=== PATIENT | female | born 1955 | race Caucasian/White ===

== ENCOUNTER → 2022-04-28 | Outpatient (CLI) | payer MEDICARE ==
--- NOTE | 2022-04-28 14:26 | BD ---
EXAMINATION TYPE: Axial Bone Density DATE OF EXAM: 04/28/2022 COMPARISON: BASELINE CLINICAL HISTORY: 66 years old Female. ICD-10 CODE: Z13.820 SCREEN FOR OSTEOPOROSIS Height: 59 Weight: 180 FRAX RISK QUESTIONS: Family History (Parent hip fracture): YES MOTHER History of Fracture in Adulthood: NO Secondary Osteoporosis: NO RISK FACTORS HISTORY OF: Family History of Osteoporosis: NO Active: YES Diet low in dairy products/other sources of calcium: YES Postmenopausal woman: YES Lost more than 2 inches in height since high school: NO MEDICATIONS: Additional Medications: YES HBP , IBS MEDS , VIT D , CALCIUM EXAM MEASUREMENTS: Bone mineral densitometry was performed using the [employer] System. Bone mineral density as measured about the Lumbar spine is: ----- L1-L4(G/cm2): 1.242 T Score Values are as follows: ----- L1: 0.3 ----- L2: 0.7 ----- L3: 0.6 ----- L4: 0.2 ----- L1-L4: 0.5 Bone mineral density BASELINE Bone mineral density about the R hip (g/cm2): 0.750 Bone mineral density about the L hip (g/cm2): 0.718 T Score values are as follows: -----R Neck: -2.3 -----L Neck: -2.3 -----R Total: -2.0 -----L Total: -2.3 Bone mineral density BASELINE FRAX%s: The graph provided illustrates a 11.9% chance for a major osteoporotic fx and a 2.3% chance f or the hips probability for fx in 10 years time. IMPRESSION: Osteopenia (T Score between -2.5 and -1). Most pronounced at the femoral necks. There is slightly increased risk of fracture and the patient may be considered for treatment. Re-Screen 2-5 years. NOTE: T-SCORE=SD OF THE YOUNG ADULT MEAN.
--- NOTE | 2022-05-20 08:43 | MM ---
Reason for Exam: Screening (asymptomatic). Last mammogram was performed 1 year(s) and 3 month(s) ago. Patient History: Menarche at age 9. First Full-Term at age 17. Postmenopausal. Maternal aunt had breast cancer, age 60. Cousin had breast cancer, age 50. Cousin had breast cancer, age 45. Risk Values: Marta 5 year model risk: 1.3%. NCI Lifetime model risk: 4.6%. Prior Study Comparison: 01/31/2021 Bilateral MG 3D screening mammo w/cad, [place]. Tissue Density: The breast tissue is heterogeneously dense. This may lower the sensitivity of mammography. Findings: Analyzed By CAD. There is no suspicious group of microcalcifications or new suspicious mass in either breast. Overall Assessment: Benign, BI-RAD 2 Management: Screening Mammogram of both breasts in 1 year. A clinical breast exam by your physician is recommended on an annual basis and results should be correlated with mammographic findings. Electronically signed and approved by: Abisai Stevens M.D. Radiologis
== END | disposition home or self-care (01) ==
LOC: RADMAMWWP 12:44
PROVIDERS: ATTEND Internal Medicine
DX: Z12.31 Encounter for screening mammogram for malignant neoplasm of breast (principal); Z13.820 Encounter for screening for osteoporosis; M85.89 Other specified disorders of bone density and structure, multiple sites; Z78.0 Asymptomatic menopausal state; Z80.3 Family history of malignant neoplasm of breast
CPT/HCPCS: 77063; 77067; 77080

== ENCOUNTER 2022-06-04 08:36 | Day surgery (SDC) | payer MEDICARE ==
[2022-06-01 13:25] VITALS: BMI 34.7
[~2022-06-04 08:36] MED LIST: DEXAMETHASONE SOD PHOSPHATE 4 MG/ML 1 ML VIAL IV ONE; HYDROmorphone 0.5 MG/0.5 ML SYRINGE IVP PRN; LACTATED RINGERS 1,000 ML IV SCH; LIDOCAINE 1% (10MG/ML) FOR IV START INTRADERMA PRN; MIDAZOLAM 2 MG/2 ML VIAL IV PRN; ONDANSETRON 4 MG/2 ML VIAL IVP ONE
[2022-06-04 09:18] VITALS: TEMP 97
[2022-06-04] MEDS ORDERED: MIDAZOLAM 2 MG/2 ML VIAL ONE (10:56)
[2022-06-04] MEDS ORDERED: PROPOFOL 10 MG/ML 20 ML VIAL IV ONE (10:56)
[2022-06-04] MEDS ORDERED: fentaNYL (PF) 50 MCG/ML 2 ML AMP ONE (10:56)
[2022-06-04] MEDS ORDERED: KETAMINE 10 MG/ML 20 ML VIAL ONE (10:56)
[2022-06-04] MEDS ORDERED: BUPIVACAINE (PF) 0.25% 30 ML VIAL SQ ONE (11:15)
[2022-06-04 11:45] VITALS: RESP 16
--- NOTE | 2022-06-04 11:48 | P.OP ---
Date of Procedure: 06/04/22 Preoperative Diagnosis: Hammertoe second digit right foot Postoperative Diagnosis: Same Procedure(s) Performed: Hammertoe correction second digit right foot Implants: 2.0 mm headless cannulated screw Anesthesia: DAYNA TAM, local Surgeon: Akhil Boudreaux Estimated Blood Loss (ml): 1 Pathology: none sent Condition: stable Disposition: PACU Description of Procedure: Patient is brought into the operative room and placed on table supine position. Timeout was taken to confirm correct patient identifiers, correct laterally of surgery, and correct procedure. When the staff in the room were in agreement with the timeout, the patient was placed under IV sedation anesthesia. A well- padded tourniquet was placed left ankle and then 20 mL 0.25% Marcaine was injected as a forefoot block. The right foot was then prepped and draped usual manner. The foot was exsanguinated and the tourniquet inflated to 250 mmHg. Attention was directed over the dorsal aspect of the second digit where 2 semi- cortical converging incisions are made around the proximal interphalangeal joint. The interposing piece of skin was carefully dissected off of the underlying subcu tissue. A transverse incision was made through the proximal interphalangeal joint resecting the extensor tendon as well as the collateral ligaments. A sagittal saw was was used to resect the proximal phalangeal head of the second digit and a Ronguer was used to remove the articular cartilage fr om the base of the middle phalanx. A Guidewire for a 2.0 cannulated screw was then used to a create menhaden vessel pilot hole in the proximal phalanx. The wire was removed and then placed at the central aspect of the base of the middle phalanx and advanced out the distal tip of the digit. The wire was then aligned with the menhaden vessel pilot hole in the proximal phalanx and the wire advanced to the base. Fluoroscopy was used to confirm the proper placement of the wire. A 2.0 cannulated screw was then inserted over the wire and advanced until the threaded head engaged the bone of the distal phalanx. Fluoroscopic imaging showed rectus alignment of the digits with good bony contact at the arthrodesis sites and proper placement of the hardware. The wound was irrigated thoroughly with antibiotic saline. The extensor tendon was repaired with 2-0 Vicryl. Skin closure done with 3. Nonadherent gauze and a dry sterile dressing applied to the right foot. The tourniquet was released capillary refill return to all digits on the right foot. Patient tolerated above procedure and anesthesia well and went to recovery with vital signs stable
[2022-06-04 12:27] VITALS: BP 155/90; PULSE 76
== END 2022-06-04 13:02 | disposition home or self-care (01) ==
LOC: OR 08:36
PROVIDERS: ATTEND Podiatrist
DX: M20.41 Other hammer toe(s) (acquired), right foot (principal)
CPT/HCPCS: 28285; J1100; J0690; J2405